=== PATIENT | male | born 1950 | race Caucasian/White ===

== ENCOUNTER 2020-01-09 13:49 | Outpatient (RCR) | payer SELFPAY | END 2020-01-09 23:59 | disposition home or self-care (01) | LOC: ANHAUDIO 13:49 | DX: Z46.1 Encounter for fitting and adjustment of hearing aid (principal) | CPT/HCPCS: 92593 ==

== ENCOUNTER 2021-10-30 10:26 | Outpatient (RCR) | payer SELFPAY | END 2021-10-30 23:59 | disposition home or self-care (01) | LOC: ANHAUDIO 10:26 | DX: Z46.1 Encounter for fitting and adjustment of hearing aid (principal) | CPT/HCPCS: 92593 ==